=== PATIENT | female | born 1975 | race Two or more races ===

== ENCOUNTER → 2016-12-23 | Outpatient (CLI) | payer MEDICAID ==
--- NOTE | 2016-12-23 13:43 | CPEEG ---
[f rep st] ELECTROENCEPHALOGRAM EEG. DATE OF STUDY: 12/23/2016 DATE OF INTERPRETATION: 12/23/2016. INTERPRETATION: This EEG is essentially normal. There was no definite potentially epileptogenic abn ormalities during wakefulness or sleep. Compared to the previous tracing dated March 04, 2015, this i s a marked improvement with resolution of the frequent left occipital spikes and sharp waves. REPORT: This EEG contains 9 hertz alpha to the posterior head regions. There was no abnormal activa tion at rest, during photic stimulation or hyperventilation. The patient became drowsy and fell asle ep during the study. During drowsiness and sleep, there was rare sharply contoured waveforms over th e left occipital head region without definite spikes or sharp waves. There was no definite abnormal activation during drowsiness, sleep, or during times of arousal. This tracing was compared to the patient's previous tracing dated March 04, 2015, which contained freq uent left occipital spikes and sharp waves. Compared to that tracing, there is a marked improvement with resolution of those left occipital discharges. /[id number]/MODL
== END ==
LOC: FCPNEURO 10:44
PROVIDERS: ATTEND Psychiatry & Neurology Neurology
DX: Z13.89 Encounter for screening for other disorder (principal)